=== PATIENT | male | born 1980 | race American Indian/Alaskan Native ===

== ENCOUNTER 2018-02-19 18:03 | Emergency (ER) | payer MEDICAID, OTHER ==
[2018-02-19 18:04] VITALS: BMI 24.3
[2018-02-19] MEDS ORDERED: cefTRIAXone (Rocephin) 250 mg Inj IM ONE (21:06)
--- NOTE | 2018-02-19 21:19 | ED PDOC ---
HPI: Male Pain Time Seen by Provider: 02/19/18 20:55 Chief Complaint (Nursing): Male Genitourinary Chief Complaint (Provider): dysuria History Per: Patient History/Exam Limitations: no limitations Onset/Duration Of Symptoms: Days (1) Current Symptoms Are (Timing): Still Present Quality Of Discomfort: Burning Additional Complaint(s): 37 y/o male presents for evaluation of dysuria x 1 day. Associated white/yellow penile discharge. Denies fever, nausea/vomiting, chest pain, abdominal pain, testicular pain/swelling, hematuria. Patient states he is sexually active with two partners; does not use protection Past Medical History Reviewed: Historical Data, Nursing Documentation, Vital Signs Vital Signs: Last Vital Signs Temp 98.4 F 02/19/18 19:44 Pulse 65 02/19/18 19:44 Resp 18 02/19/18 19:44 BP 126/75 02/19/18 19:44 Pulse Ox 100 02/19/18 19:44 - Medical History PMH: Anxiety, Bipolar Disorder, Depression, Schizophrenia Denies: Alzheimer's Disease, Anemia, Arthritis, Asthma, Atrial Fibrillation, Bronchitis, Cardia Arrhythmia, CHF, COPD, Crohn's Disease, Dementia, Diabetes, Diverticulitis, Emphysema, Fractures, Gastritis, Gall Bladder Disease, Hepatitis, HIV, HTN, Hypercholesterolemia, Hyperthyroidism, Hypothyroidism, Kidney Stones, Migraine, Mitral Valve Prolapse, Multiple Sclerosis, Osteoporosis, Pancreatitis, Parkinson's Disease, Peripheral Edema, Personality D isorder, Pneumonia, Pulmonary Embolism, Chronic Kidney Disease, Rheumatoid Arthritis, Seizures, Sickle Cell Disease, Sexually Transmitted Disease, Sleep Apnea, TIA - Surgical History Surgical History: Denies: Appendectomy, CABG, Carotid Endarterectomy, Cholecystectomy, Coronary Stent, Pacemaker, Tonsillectomy - Family History Family History: States: Unknown Family Hx - Home Medications Home Medications: Ambulatory Orders Medication Instructions Recorded Divalproex [Depakote ER(ONCE 750 mg PO HS #45 ter 12/13/15 DAILY)] risperiDONE [RisperDAL Tab] 1 mg PO HS #15 tab 12/13/15 Ciprofloxacin HCl [Cipro] 500 mg PO BID #6 tab 02/19/18 - Allergies Allergies/Adverse Reactions: Allergies Allergy/AdvReac Type Severity Reaction Status Date / Time No Known Allergies Allergy Verified 02/19/18 19:44 Review of Systems ROS Statement: Except As Marked, All Systems Reviewed And Found Negative Genitourinary Male: Positive for: Dysuria, Penile Discharge Physical Exam - Reviewed Nursing Documentation Reviewed: Yes Vital Signs Reviewed: Yes - Physical Exam Appears: Positive for: Well, Non-toxic, No Acute Distress Head Exam: Positive for: ATRAUMATIC, NORMAL INSPECTION, NORMOCEPHALIC Skin: Positive for: Normal Color Eye Exam: Positive for: Normal appearance ENT: Positive for: Normal ENT Inspection Cardiovascular/Chest: Positive for: Regular Rate, Rhythm Respiratory: Positive for: Normal Breath Sounds Gastrointestinal/Abdominal: Positive for: Normal Exam Male Genital Exam: Positive for: normal genitalia, 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 Negative for: scrotum tenderness (R), scrotum tenderness (L), testicular tenderness (R), testicular tenderness (L), urethral discharge Extremity: Positive for: Normal ROM Neurologic/Psych: Positive for: Alert, Oriented (x3) - ECG O2 Sat by Pulse Oximetry: 100 - Progress ED Course And Treament: -urinalysis -gc chlamydia Patient requesting STD prophylaxis. Rocephin IM, Zithromax PO ordered Patient with leuks and 27 WBCs on urinalysis, will give rx for Cipro Patient was advised to follow up with PMD within 2-3 days Advised no sex until symptoms resolve REturn precautions given Disposition - Clinical Impression Clinical Impression: Dysuria - Patient ED Disposition Is Patient to be Admitted: No Counseled Patient/Family Regarding: Studies Performed, Diagnosis, Need For Followup, Rx Given - Disposition Disposition: Routine/Home Disposition Time: 21:57 Condition: IMPROVED Prescriptions: Ciprofloxacin HCl [Cipro] 500 mg PO BID #6 tab Instructions: Dysuria, Adult (DC)
[2018-02-19 21:40] LABS: SQUAMOUS EPITHIAL < 1 /hpf (0-5); URINE BACTERIA RARE (<OCC); URINE BILIRUBIN NEGATIVE (NEGATIVE); URINE BLOOD NEGATIVE (NEGATIVE); URINE CLARITY SLIGHTY-CLOUDY (Clear); URINE COLOR YELLOW (YELLOW); URINE GLUCOSE (UA) NEG (NEGATIVE); URINE LEUKOCYTE ESTERASE SMALL Leu/uL (Negative); URINE PROTEIN 30 mg/dL (NEGATIVE)
[2018-02-19] MEDS ORDERED: cefTRIAXone (Rocephin) 250 mg Inj ONE (21:46)
[2018-02-19] MEDS ORDERED: Sterile Water 10 ML IV ONE (21:46)
[2018-02-20 00:10] VITALS: BP 122/71; PULSE 70; RESP 16; TEMP 98.3; O2SAT 99
== END 2018-02-19 22:00 | disposition home or self-care (01) ==
LOC: H.ER 18:03
DX: R30.0 Dysuria (principal); Z86.59 Personal history of other mental and behavioral disorders; Z79.899 Other long term (current) drug therapy
CPT/HCPCS: 81003; 87086; 87491; 87591; 96372; 99283; J0696